=== PATIENT | female | born 1935 | race Caucasian/White ===

== ENCOUNTER 2023-11-20 22:46 | Emergency (ER) | payer MEDICAID ==
[~2023-11-20] VITALS: Ht 149.9 cm; Wt 56.7 kg
[2023-11-20 22:54] VITALS: BP 114/61; PULSE 78; RESP 16; TEMP 97.8; O2SAT 96
[2023-11-20 22:59] VITALS: TEMP 97.8
[2023-11-20 23:44] LABS: BASOPHILS % (AUTO) 0.7 % (0.0-2.0); EOSINOPHILS # (AUTO) 0.1 K/uL (0-0.4); EOSINOPHILS % (AUTO) 2.1 % (0.0-4.0); HEMATOCRIT 35.1 % (36-48); HEMOGLOBIN 11.7 g/dL (12.0-16.0); LYMPHOCYTES # (AUTO) 0.8 K/uL (2.5-16.5); LYMPHOCYTES % (AUTO) 15.8 % (20.5-51.1); MEAN CORPUSCULAR HEMOGLOBIN 30 pg (27-31); MEAN CORPUSCULAR HGB CONC 33 g/dL (33-37); MEAN CORPUSCULAR VOLUME 90.4 fL (80-94); MONOCYTES # (AUTO) 0.6 K/uL (0.8-1.0); MONOCYTES % (AUTO) 11.9 % (1.7-9.3); NEUTROPHILS # (AUTO) 3.4 K/uL (1.8-7.7); NEUTROPHILS % (AUTO) 69.5 % (42.2-75.2); PLATELET COUNT (AUTO) 178 K/uL (140-450); RED BLOOD CELL COUNT(AUTO) 3.88 MIL/uL (4.20-5.40); RED CELL DISTRIBUTION WIDTH 19.5 % (11.6-13.7); WHITE BLOOD COUNT (AUTO) 4.8 K/uL (4.8-10.8)
[2023-11-20 23:58] LABS: ANION GAP 9.5 (8-16); CALCIUM 8.9 mg/dL (8.5-10.1); CARBON DIOXIDE 30.4 mmol/L (21-32); CHLORIDE 103 mmol/L (98-107); CREATININE 0.7 mg/dL (0.6-1.3); GLUCOSE 97 mg/dL (74-106); POTASSIUM 3.9 mmol/L (3.5-5.1); SODIUM SERUM 139 mmol/L (136-145); UREA NITROGEN, BLOOD 18 mg/dL (7-18)
[2023-11-21] MEDS: MORPHINE SULFATE 2 MG/ML SYR IVP ONE ×2 (00:30→02:35)
[2023-11-21] MEDS ORDERED: MORPHINE SULFATE 2 MG/ML SYR ONE (02:14)
[2023-11-21] MEDS: ALUMINUM HYD/MAG/SIMETHICONE 30 ML UDC PO ONE (02:15)
[2023-11-21] MEDS: MORPHINE SULFATE 4 MG/ML SYR IVP ONE (02:21)
[2023-11-21] MEDS ORDERED: ALUMINUM HYD/MAG/SIMETHICONE 30 ML UDC ONE (02:22)
[2023-11-21] MEDS ORDERED: DICYCLOMINE HCL LIQUID 10 MG/5 ML UDC ONE (02:22)
[2023-11-21] MEDS: DICYCLOMINE HCL LIQUID 20 MG, ALUMINUM HYD/MAG/SIMETHICONE 30 ML, LIDOCAINE VISCOUS 2% ... PO ONE (02:26)
[2023-11-21] MEDS: ONDANSETRON 4 MG/2 ML VIAL IVP ONE (02:58)
[2023-11-21] MEDS ORDERED: AMOX1TAB8 PO (03:16)
[2023-11-21 05:05] VITALS: BP 123/61; PULSE 62; RESP 17; O2SAT 94
== END 2023-11-21 06:22 | disposition home or self-care (01) ==
LOC: MED 22:46
DX: K20.90 Esophagitis, unspecified without bleeding (principal); L03.818 Cellulitis of other sites; I10 Essential (primary) hypertension; E11.9 Type 2 diabetes mellitus without complications; Z79.2 Long term (current) use of antibiotics
CPT/HCPCS: 36415; 74177; 80048; 85025; 93005; 96374; 96375; 96376; 99285; J2270; J2405; Q9967